=== PATIENT | female | born 1970 | race Caucasian/White ===

== ENCOUNTER 2017-12-02 13:53 | Emergency (ER) | payer BC ==
--- NOTE | 2017-12-02 14:13 | UC ---
Throat Pain/Nasal Zackary HPI - HPI Summary HPI Summary: 47 YO F > 1 WEEK OF SINUS CONGESTION. HAS HAD FEVERS. POSITIVE FACIAL PRESSURE/ PAIN. YELLOW/GREEN RHINORRHEA. CHRONIC WHEEZING THAT IMPROVES WITH ALBUTEROL WHICH SHE USES ONCE YESTERDAY. - History of Current Complaint Chief Complaint: UCRespiratory Stated Complaint: SINUS CONGESTION Time Seen by Provider: 12/02/17 14:04 Hx Obtained From: Patient Hx Last Menstrual Period: 10/24/15 ?: No Onset/Duration: Lasting Days Severity: Mild Cough: Nonproductive Associated Signs & Symptoms: Positive: Wheezing - Allergies/Home Medications Allergies/Adverse Reactions: Allergies Allergy/AdvReac Type Severity Reaction Status Date / Time azithromycin Allergy Hives Verified 12/02/17 14:06 Penicillins Allergy Hives Verified 12/02/17 14:06 Home Medications: Home Medications Budesonide/Formote 160/4.5(NF) [Symbicort 160/4.5 (NF)] 2 puff BID 12/02/17 [ History Confirmed 12/02/17] PMH/Surg Hx/FS Hx/Imm Hx Previously Healthy: No Respiratory History: Asthma - Surgical History Surgical History: Yes Surgery Procedure, Year, and Place: wisdom teeth as a child - Family History Known Family History: Positive: Unknown - Social History Alcohol Use: Occasionally Substance Use Type: None Smoking Status (MU): Never Smoked Tobacco - Immunization History Most Recent Tetanus Shot: unlnown Review of Systems Constitutional: Fever Skin: Negative Eyes: Negative ENT: Nasal Discharge, Sinus Congestion, Sinus Pain/Tenderness Respiratory: Other - WHEEZING Cardiovascular: Negative Gastrointestinal: Negative Motor: Negative Neurovascular: Negative Musculoskeletal: Negative Neurological: Negative Psychological: Negative Is Patient Immunocompromised?: No All Other Systems Reviewed And Are Negative: Yes Physical Exam Triage Information Reviewed: Yes Appearance: Well-Appearing Vital Signs Reviewed: Yes Eye Exam: Normal ENT: Positive: Pharynx normal, Nasal congestion, Nasal drainage, TMs normal Neck exam: Normal Neck: Positive: Supple Respiratory: Positive: No accessory muscle use, Wheezing Cardiovascular Exam: Normal Musculoskeletal Exam: Normal Neurological Exam: Normal Psychological Exam: Normal Skin Exam: Normal Throat Pain/Nasal Course/Dx - Course Course Of Treatment: DISCUSSED VIRAL VERSES BACTERIAL INFECTIONS AND THE ROLE OF ANTIBIOTICS. THE PATIENT PREFERS TO BE ON AN ANTIBIOTIC AT THIS TIME. SHE REPORTS AN ALLERGY TO PCN BUT, HAS USED KEFLEX IN THE PAST AND IT HAS HELPED. SHE DECLINED PREDNISONE FOR THE WHEEZING. F/U PMD; RECHECK SOONER IF WORSE. - Differential Dx/Diagnosis Provider Diagnoses: SINUSITIS Discharge - Sign-Out/Discharge Documenting (check all that apply): Patient Departure - Discharge Plan Condition: Stable Disposition: HOME Prescriptions: Cephalexin CAP* [Keflex CAP*] 500 mg PO TID #30 cap Patient Education Materials: Sinusitis (ED) Referrals: Gail Rosas MD [Primary Care Provider] - Additional Instructions: FOLLOW UP WITH YOUR DOCTOR IF NOT COMPLETELY IMPROVED. GET RECHECKED FOR ANY WORSENING OF YOUR CONDITION OR QUESTIONS OR CONCERNS. - Billing Disposition and Condition Condition: STABLE Disposition: Home
[2017-12-02 14:14] VITALS: BP 154/96
== END 2017-12-02 14:16 | disposition home or self-care (01) ==
LOC: UCCORT 13:53
DX: J32.9 Chronic sinusitis, unspecified (principal); J45.909 Unspecified asthma, uncomplicated
CPT/HCPCS: 99212; G0463

== ENCOUNTER 2019-07-01 07:47 | Emergency (ER) | payer BC ==
[2019-07-01 08:04] VITALS: BP 109/83
[2019-07-01] MEDS ORDERED: Ibuprofen TAB* 600 MG PO ONE (08:11)
[2019-07-01] MEDS ORDERED: Albuterol 2.5 MG/3 ML NEB.SOL* (0.083%) INH ONE (08:11)
[2019-07-01 08:16] LABS: Influenza A Molecular POSITIVE (Negative)
--- NOTE | 2019-07-01 08:59 | UC ---
FLU HPI - HPI Summary HPI Summary: 48-year-old woman comes in with chief complaint of influenza-like symptoms one day. She also has asthma. The influenza-like symptoms are making her asthma worse. She has been using her inhalers which do help some with the breathing. Said fever chills body aches. - History of Current Complaint Chief Complaint: UCGeneralIllness Stated Complaint: FEVER,ACHES,COUGH Time Seen by Provider: 07/01/19 08:51 Hx Last Menstrual Period: 06/26/19 Pain Intensity: 6 - Allergy/Home Medications Allergies/Adverse Reactions: Allergies Allergy/AdvReac Type Severity Reaction Status Date / Time azithromycin Allergy Hives Verified 07/01/19 08:04 Penicillins Allergy Hives Verified 07/01/19 08:04 PMH/Surg Hx/FS Hx/Imm Hx Previously Healthy: Yes Respiratory History: Asthma - Surgical History Surgical History: Yes Surgery Procedure, Year, and Place: wisdom teeth as a child - Family History Known Family History: Positive: Unknown - Social History Alcohol Use: Occasionally Substance Use Type: None Smoking Status (MU): Never Smoked Tobacco Length of Time of Smoking/Using Tobacco: 25 years When Did the Patient Quit Smoking/Using Tobacco: 2014 - Immunization History Most Recent Tetanus Shot: unlnown Review of Systems All Other Systems Reviewed And Are Negative: Yes Constitutional: Positive: Fever, Chills, Other - SEE HPI Skin: Positive: Negative Eyes: Positive: Negative ENT: Positive: Nasal Discharge Respiratory: Positive: Cough, Other - SEE HPI Cardiovascular: Positive: Negative Gastrointestinal: Positive: Negative Motor: Positive: Negative Neurovascular: Positive: Negative Musculoskeletal: Positive: Myalgia Neurological/Mental Status: Positive: Headache Psychological: Positive: Negative Is Patient Immunocompromised?: No Physical Exam Triage Information Reviewed: Yes Appearance: No Pain Distress, Well-Nourished, Ill-Appearing - MILD Vital Signs: Initial Vital Signs Temp 100.1 F 07/01/19 08:01 Pulse 113 07/01/19 08:01 Resp 24 07/01/19 08:01 BP 109/83 07/01/19 08:01 Pulse Ox 99 07/01/19 08:01 Vital Signs Reviewed: Yes Eye Exam: Normal Eyes: Positive: Conjunctiva Clear ENT: Positive: Pharynx normal, Nasal congestion, Nasal drainage, TMs normal Neck: Positive: Supple Respiratory: Positive: Lungs clear, Normal breath sounds, No respiratory distress Cardiovascular: Positive: Tachycardia Musculoskeletal: Positive: Strength Intact, ROM Intact Neurological: Positive: Alert, Muscle Tone Normal Psychological: Positive: Normal Response To Family, Age Appropriate Behavior Skin Exam: Normal Flu Course/Dx - Course Course Of Treatment: Infant Room Teacher: Cesar Cary F ([id number]) Donkey Engine Firer/Fireman: YANIQUE ( NUANCE) Report Date: 07/01/2019 08:42:00 Report Status: Final ====== Start of Report Content Patient Name: JEFFREY VEE Medical Record#: [id number] Ordering Physician: Cb Tan MD Acct.#: [id number] : Age: 48 Sex: F Location: [facility] Exam Date: 07/01/19805 ADM Status: [facility] ER Order Information: CHEST PA LAT 2 VWS Accession Number: [id number] CPT: 95795 INDICATION: Fever. COMPARISON: There are no relevant prior studies available for comparison. TECHNIQUE: Dual-energy PA and lateral views of the chest were obtained. FINDINGS: The heart is within normal limits in size. Mediastinal and hilar contours appear within normal limits. The lungs are hyperinflated and clear. No pleural effusion is seen. IMPRESSION: FINDINGS CONSISTENT WITH COPD, NO EVIDENCE FOR ACUTE DISEASE. <Electronically signed by Cesar Cary MD in OV> 07/01/19838 Dictated By: Cesar Cary MD Dictated Date/Time: 837 Transcribed Date/Time: 07/01/19837 Copy to: CC:[facility]; Gail Rosas MD; Cb Tan MD Imaging - [facility] Imaging - [facility] Imaging - [facility] [address] [facility] [address] ph ) ph [phone]) ph ([phone]) End of Report Content ==== Influenza positive. I discussed the chest x-ray results with the patient. Patient will continue to treat with albuterol for her asthma. Discussed that if she got worse she needed to get reevaluated. - Differential Dx/Diagnosis Provider Diagnosis: Influenza, Asthma Discharge ED - Sign-Out/Discharge Documenting (check all that apply): Patient Departure All imaging exams completed and their final reports reviewed: Yes - Discharge Plan Condition: Stable Disposition: HOME Prescriptions: Oseltamivir CAP* [Tamiflu CAP*] 75 mg PO BID #10 cap Patient Education Materials: Asthma (ED), Influenza (ED) Forms: *Work Release Referrals: Gail Rosas MD [Primary Care Provider] - Additional Instructions: FOLLOW UP WITH YOUR DOCTOR IF NOT COMPLETELY IMPROVED. GET REEVALUATED SOONER IF NOT IMPROVED OR WORSE OR ANY QUESTIONS OR CONCERNS. - Billing Disposition and Condition Condition: STABLE Disposition: Home
== END 2019-07-01 09:08 | disposition home or self-care (01) ==
LOC: UCCORT 07:47
DX: J11.1 Influenza due to unidentified influenza virus with other respiratory manifestations (principal); J45.909 Unspecified asthma, uncomplicated; Z88.0 Allergy status to penicillin; Z88.1 Allergy status to other antibiotic agents
CPT/HCPCS: 71046; 87651; 99212; A9270-GY; G0463